=== PATIENT | female | born 1960 | race Caucasian/White ===

== ENCOUNTER 2025-06-02 13:59 | Outpatient (CLI) | payer MEDICARE ==
[2025-06-02 15:08] LABS: #Basophils 0.05 10x3/uL (0.0-0.2); #Eosinophils 0.34 10x3/uL (0.0-0.7); #Monocytes 0.82 10x3/uL (0.11-0.59); #Neutrophils 3.43 10x3/uL (1.40-6.50); %Basophils 0.7 % (0.0-1.0); %Eosinophils 5.0 % (0.0-10.0); %Lymphocytes 31.4 % (21.0-51.0); %Monocytes 12.0 % (0.0-10.0); %Neutrophils 50.3 % (42.0-75.0); Hematocrit 40.3 % (36.0-47.0); Hemoglobin 12.9 g/dL (12.0-16.0); Mean Corpuscular Hemoglobin 30.2 pg (27.0-31.0); Mean Corpuscular Volume 94.4 fL (78.0-98.0); Platelet Count 383 10x3/uL (130-400); Red Blood Cell (RBC) Count 4.27 mill/uL (4.20-5.40); White Blood Cell (WBC) Count 6.82 10x3/uL (4.8-10.8)
[2025-06-02 15:22] LABS: INR-International Normal Ratio 1.0; Prothrombin Time 12.8 sec (12.0-14.7)
[2025-06-02 15:23] LABS: PTT 27.7 sec (22.9-36.1)
[2025-06-02 15:32] LABS: Anion Gap 15 mmol/L (10-20); BUN (Urea Nitrogen) 13 mg/dL (9.8-20.1); Calc. Creatinine Clearance 0 mL/min (70-130); Calcium 9.0 mg/dL (7.8-10.44); Carbon Dioxide 27 mmol/L (23-31); Chloride 106 mmol/L (98-107); Glucose 79 mg/dL (80-115); Potassium 3.8 mmol/L (3.5-5.1); Sodium 144 mmol/L (136-145)
== END 2025-06-02 14:00 | disposition home or self-care (01) ==
LOC: LABBT 13:59
PROVIDERS: ATTEND Neurological Surgery
DX: Z01.818 Encounter for other preprocedural examination (principal); M48.062 Spinal stenosis, lumbar region with neurogenic claudication
CPT/HCPCS: 80048; 85025; 85610; 85730; 93005; 93010

== ENCOUNTER 2025-06-06 05:40 | Day surgery (SDC) | payer MEDICARE ==
[2025-06-02 14:22] VITALS: BMI 33.6
[2025-06-06] MEDS ORDERED: fentaNYL PF 100 MCG/2 ML SYRINGE ONE ×3 (06:07→10:12)
[2025-06-06] MEDS ORDERED: PROPOFOL 20 ML ONE (06:07)
[2025-06-06] MEDS ORDERED: Thrombin 5000 UNITS/5 ML VIAL ONE (06:17)
[2025-06-06] MEDS ORDERED: Rocuronium Bromide 10 MG/ML (10ML VIAL) ONE (06:17)
[2025-06-06] MEDS ORDERED: Lidocaine 1% PF 5 ML VIAL ONE (06:17)
[2025-06-06] MEDS ORDERED: CEFAZOLIN 2 GM VIAL ONE (06:49)
[2025-06-06] MEDS ORDERED: PHENYLEPHRINE-NS 100 MCG/ML 10 ML SYRINGE ONE (07:52)
[2025-06-06] MEDS ORDERED: Glycopyrrolate 0.2 MG/ML 5 ML SYRINGE ONE (07:52)
[2025-06-06] MEDS ORDERED: Ondansetron PF 4 MG/2 ML Vial ONE (09:02)
[2025-06-06] MEDS ORDERED: SUGAMMADEX SODIUM 200 MG/2 ML VIAL ONE (09:17)
[2025-06-06] MEDS ORDERED: HYDROmorphone 0.5 MG/0.5 ML SYRINGE ONE (10:53)
[2025-06-06] MEDS ORDERED: HYDROcodone/Acetaminophen 5/325 mg Tablet ONE (11:43)
== END 2025-06-06 12:20 | disposition home or self-care (01) ==
LOC: SDC 05:40
PROVIDERS: ATTEND Neurological Surgery
PROC: 00NY0ZZ Release Lumbar Spinal Cord, Open Approach (ICD-10-PCS; principal; 2025-06-06)
DX: M48.062 Spinal stenosis, lumbar region with neurogenic claudication (principal); M41.9 Scoliosis, unspecified; I10 Essential (primary) hypertension; F32.A Depression, unspecified; Z96.651 Presence of right artificial knee joint; Z87.891 Personal history of nicotine dependence; Z90.49 Acquired absence of other specified parts of digestive tract; Z91.040 Latex allergy status; Z88.5 Allergy status to narcotic agent; Z79.899 Other long term (current) drug therapy
CPT/HCPCS: 63047; 63048 ×2; J0169; J0665; J1100; J1171; J2405; J2704; J3373; J3010